=== PATIENT | male | born 1955 | race Caucasian/White ===

== ENCOUNTER 2018-07-16 20:43 | Emergency (ER) | payer BC ==
[~2018-07-16] VITALS: Ht 182.9 cm; Wt 85.7 kg
[2018-07-16] MEDS ORDERED: TETRACAINE HCL 0.5% OPTH SOLN 4 ML BTL OP ONE (21:00)
[2018-07-16] MEDS ORDERED: FLUORESCEIN SOD(OPTH) 1 MG STRP OP ONE (21:00)
== END 2018-07-16 21:20 | disposition home or self-care (01) ==
LOC: FSED 20:43
DX: H57.11 Ocular pain, right eye (principal); H10.021 Other mucopurulent conjunctivitis, right eye; S05.01XA Injury of conjunctiva and corneal abrasion without foreign body, right eye, initial encounter
CPT/HCPCS: 99283

== ENCOUNTER → 2024-03-06 | Day surgery (SDC) | payer BC, MEDICARE ==
[2024-03-01 13:05] LABS: BASOPHILS # (AUTO) 0.1 (0.0-0.1); BASOPHILS % 0.8 % (0.0-1.0); EOSINOPHILS # (AUTO) 0.1 (0.0-0.4); EOSINOPHILS % 1.9 % (0.0-6.0); HEMATOCRIT 47.1 % (38.2-49.6); HEMOGLOBIN 16.1 g/dL (14.0-18.0); LYMPHOCYTES # (AUTO) 2.1 (1.0-3.2); LYMPHOCYTES % 32.1 % (18.0-39.1); MEAN CORPUSCULAR HEMOGLOBIN 32.9 pg (28-32); MEAN CORPUSCULAR HGB CONC 34.2 g/dL (31-35); MEAN CORPUSCULAR VOLUME 96.1 fL (81-99); MONOCYTES # (AUTO) 0.7 (0.2-0.8); NEUTROPHILS # (AUTO) 3.5 (2.1-6.9); NEUTROPHILS % 53.7 % (38.7-80.0); PLATELET COUNT 233 x10e3/uL (140-360); RED CELL DISTRIBUTION WIDTH 12.1 % (11.7-14.4); WHITE BLOOD COUNT 6.48 x10e3/uL (4.8-10.8)
[~2024-03-06] MED LIST: CIALIS5 MG PO; D3-5000125 MCG; EPHEDRINE SULFATE INJ 50 MG/ML VIAL ONE; FISH OIL 1,0001 EAC7; FLOMAX0.4 MG PO; LISINOPRIL10 MG PO; MELOXICAM15 MG PO; MIDAZOLAM HCL 2 MG/2 ML VIAL ONE; OXYBUTYNIN CHLOR5 M1 PO; PANTOPRAZOLE SO40 MG PO; SIMVASTATIN40 MG PO; SYNJARDY XR 5-1 EACH PO; ZINC
[2024-03-06] MEDS: LACTATED RINGER'S 1,000 ML ONE (08:47)
[2024-03-06 11:50] VITALS: BP 121/82; PULSE 70; RESP 16; TEMP 97; O2SAT 98
== END | disposition home or self-care (01) ==
LOC: OR 08:22
PROVIDERS: ATTEND Internal Medicine Gastroenterology
DX: R63.4 Abnormal weight loss (principal); D12.4 Benign neoplasm of descending colon; K63.5 Polyp of colon; K57.30 Diverticulosis of large intestine without perforation or abscess without bleeding; K21.9 Gastro-esophageal reflux disease without esophagitis; I10 Essential (primary) hypertension; E78.5 Hyperlipidemia, unspecified; E11.9 Type 2 diabetes mellitus without complications; G89.29 Other chronic pain; N40.0 Benign prostatic hyperplasia without lower urinary tract symptoms; Z01.810 Encounter for preprocedural cardiovascular examination; Z01.812 Encounter for preprocedural laboratory examination; Z79.84 Long term (current) use of oral hypoglycemic drugs; Z79.1 Long term (current) use of non-steroidal anti-inflammatories (NSAID); Z79.899 Other long term (current) drug therapy; Z85.828 Personal history of other malignant neoplasm of skin
CPT/HCPCS: 36415; 45385; 85025; 93005; J2250; J7121; 45378